=== PATIENT | female | born 1960 | race Caucasian/White ===

== ENCOUNTER 2017-12-04 12:17 | Emergency (ER) | payer BC, OTHER ==
[~2017-12-04] VITALS: Ht 160 cm; Wt 130.7 kg
[~2017-12-04 12:17] MED LIST: AMLO2.5T PO; ASPI1TAB69 PO; BUPR150T12 PO; CHOL50008 PO; DIAZ5 PO; EXENINJ SQ; FEXO15TA PO; FURO1TAB61 PO; GLIM4TAB PO; INSU1INJ14 SQ; LEVO125T4 PO; LOSA100T PO; METF1000 PO; METO50TA PO; NEXI20CA PO; PIOG15TA5 PO; POTA-163 PO; TRAM-492
[2017-12-04 12:23] VITALS: PULSE 109; RESP 16; TEMP 98.5; O2SAT 95
--- NOTE | 2017-12-04 12:35 | PD ---
HPI Chief Complaint: Musculoskeletal Complaint Time Seen by Provider: 12:32 Travel History International Travel<30 days: No Contact w/Intl Traveler<30days: No Traveled to known affect area: No History of Present Illness HPI Patient presents with acute onset of left ankle pain. States is unable to bear weight. Tender to touch. Mild swelling. Denies history of gout. Denies history of misstep or fall. PFSH Past Medical History Hx Anticoagulant Therapy: Yes (asa 325mg) Depression: Yes Heart Rhythm Problems: No Cardiac Catheterization: No Cardiovascular Problems: Yes (htn on meds) High Cholesterol: No Congestive Heart Failure: No Diabetes: Yes (type 2) Diminished Hearing: No Gastrointestinal Disorders: Yes (CROHNS DISEASE) GERD: Yes Hypertension: Yes Reproductive: Yes ("history of irregular periods,past 2yrs" ) Myocardial Infarction: No ?: Not Menopausal: Yes Para: 0 Miscarriage: 0 : 0 Past Surgical History Abdominal Surgery: Yes (1984,gastroplasty ) Coronary Artery Bypass Graft: No Other Surgery: Yes (1994,laparoscopy,left ovarian cyst,drained) Social History Alcohol Use: No Tobacco Use: No (quit 2007) Substance Use: No Allergies-Medications (Allergen,Severity, Reaction): Coded Allergies: ramipril (Unverified Adverse Reaction, Severe, "cough", 12/04/17) Reported Meds & Prescriptions Reported Meds & Active Scripts Active Medrol Dosepak (Methylprednisolone) 4 Mg Dspk 4 Mg PO DIRECTED Per Pharmacist direction Reported Aspirin 325 Mg Tab 325 Mg PO DAILY Metolazone 2.5 Mg Tab 2.5 Mg PO DAILY Glimepiride 4 Mg Tab 4 Mg PO BIDAC Tramadol Hydrochloride (Tramadol HCl) 50 Mg Tab Nexium (Esomeprazole DR) 20 Mg Capdr 20 Mg PO DAILY Melody Allergy (Fexofenadine HCl) 180 Mg Tab 180 Mg PO DAILY Levothyroxine (Levothyroxine Sodium) 125 Mcg Tab 125 Mcg PO DAILY Bupropion Sr 12 HR (Bupropion ER 12 HR (Smoking Deterrent)) 150 Mg Tab 150 Mg PO BID Take 1 tablet daily x 3 days then twice daily thereafter. Lasix (Furosemide) 80 Mg Tab 80 Mg PO DAILY Potassium Chloride ER (Potassium Chloride) 20 Meq Tab 20 Meq PO DAILY Losartan (Losartan Potassium) 100 Mg Tab 100 Mg PO DAILY Glimepiride 4 Mg Tab 4 Mg PO DAILY Take with breakfast or first main meal Bydureon Inj (Exenatide) 2 Mg Vial 2 Mg SQ Q7D Tresiba Flextouch Pen Inj (Insulin Degludec Inj) 300 unit/3 ML Pen 1 Units SQ TID Metformin (Metformin HCl) 1,000 Mg Tab 1,000 Mg PO DAILY With a meal Review of Systems General / Constitutional: No: Fever Eyes: No: Visual changes HENT: No: Headaches Cardiovascular: No: Chest Pain or Discomfort Respiratory: No: Shortness of Breath Gastrointestinal: No: Abdominal Pain Genitourinary: No: Dysuria Musculoskeletal: No: Pain Skin: No Rash Neurologic: No: Weakness Psychiatric: No: Depression Endocrine: No: Polydipsia Hematologic/Lymphatic: No: Easy Bruising Physical Exam Narrative GENERAL: Well-nourished, well-developed patient. SKIN: Focused skin assessment warm/dry. HEAD: Normocephalic. EYES: No scleral icterus. No injection or drainage. NECK: Supple, trachea midline. No JVD or lymphadenopathy. CARDIOVASCULAR: Regular rate and rhythm without murmurs, gallops, or rubs. RESPIRATORY: Breath sounds equal bilaterally. No accessory muscle use. GASTROINTESTINAL: Abdomen soft, non-tender, nondistended. MUSCULOSKELETAL: No cyanosis, or edema. BACK: Nontender without obvious deformity. No CVA tenderness. Examination left lower extremity reveals mildly erythematous edematous ankle primarily in the lateral malleolus with pain on flexion-extension as well as touch. Negative Homans. Data Data Last Documented VS Vital Signs Date Time Temp Pulse Resp B/P (MAP) Pulse Ox O2 Delivery O2 Flow Rate FiO2 12/04/17 12:23 98.5 109 16 95 Orders Orders Ankle, Limited (Ap&Lat) (12/04/17 ) Uric Acid (12/04/17 12:32) Ed Discharge Order (12/04/17 14:34) Labs Laboratory Tests Test 12/04/17 12:50 Uric Acid 8.4 MG/DL MDM Medical Decision Making Medical Screen Exam Complete: Yes Emergency Medical Condition: Yes Differential Diagnosis Gout, ankle sprain, arthritis Narrative Course Assessment plan discussed with and patient at bedside. Uric acid is pending. Clinically patient presents as gout. Last 72 hours Impressions Ankle X-Ray 12/04/17 0000 Signed Impressions: Service Date/Time: Monday, December 04, 2017 12:43 - CONCLUSION: Diffuse soft tissue swelling with no underlying bony abnormality. Jose Cruz Obrien MD Diagnosis Primary Impression: Gout Qualified Codes: M10.9 - Gout, unspecified Patient Instructions: General Instructions Additional Instructions: Encouraged nonsteroidal anti-inflammatory for pain. Encouraged a low purine diet. Encouraged to use her walker. Follow-up with PCP. Return to emerge from with any onset of new symptoms. Med/Other Pt SpecificInfo: Prescription(s) given Scripts Methylprednisolone Dosepak (Medrol Dosepak) 4 Mg Dspk 4 MG PO DIRECTED, #1 DSPK 0 Refills Per Pharmacist direction Prov: Vicente Guallpa MD 12/04/17 Disposition: 01 DISCHARGE HOME Condition: Good Vicente Guallpa MD Dec 04, 2017 12:35
[2017-12-04] MEDS ORDERED: GLIM4TAB PO (12:43)
[2017-12-04] MEDS ORDERED: METO2.5T PO (12:43)
[2017-12-04] MEDS ORDERED: ASPI-183 PO (12:43)
--- NOTE | 2017-12-04 12:57 | RADRPT ---
EXAM DATE/TIME: 12/04/2017 12:43 [facility] COMPARISON: No previous studies available for comparison. INDICATIONS : Woke up with severe left ankle pain, hurts all over, no known injury MEDICAL HISTORY : Diabetes mellitus type II. SURGICAL HISTORY : None. ENCOUNTER: Initial ACUITY: 1 day PAIN SCORE: 10/10 LOCATION: Left ankle FINDINGS: Limited AP and lateral views of the left ankle were obtained and demonstrate diffuse soft tissue swel ling with no acute fracture or malalignment. There is a small spur off the inferior calcaneus at the site of attachment of plantar aponuerosis. There is no destructive change. CONCLUSION: Diffuse soft tissue swelling with no underlying bony abnormality. Jose Cruz Obrien MD on December 04, 2017 at 12:54 Board Certified Radiologist. This report was verified electronically.
[2017-12-04] MEDS ORDERED: MEDR4PAK PO (14:29)
== END 2017-12-04 14:55 | disposition home or self-care (01) ==
LOC: PHED 12:17
DX: M10.9 Gout, unspecified (principal); F32.9 Major depressive disorder, single episode, unspecified; I10 Essential (primary) hypertension; E11.9 Type 2 diabetes mellitus without complications; K21.9 Gastro-esophageal reflux disease without esophagitis; Z87.891 Personal history of nicotine dependence; Z87.19 Personal history of other diseases of the digestive system; Z79.82 Long term (current) use of aspirin; Z79.899 Other long term (current) drug therapy
CPT/HCPCS: 73600; 84550; 99283